=== PATIENT | female | born 1990 ===

== ENCOUNTER 2023-08-15 11:50 | Outpatient (CLI) | payer OTHER | END 2023-08-15 17:21 | disposition home or self-care (01) | LOC: PRENATAL 11:50 | PROVIDERS: ATTEND Obstetrics & Gynecology Maternal & Fetal Medicine | DX: O36.80X0 Pregnancy with inconclusive fetal viability, not applicable or unspecified (principal); Z36.82 Encounter for antenatal screening for nuchal translucency; Z36.9 Encounter for antenatal screening, unspecified; Z14.8 Genetic carrier of other disease; O99.210 Obesity complicating pregnancy, unspecified trimester; O34.219 Maternal care for unspecified type scar from previous cesarean delivery; O26.859 Spotting complicating pregnancy, unspecified trimester; Z3A.13 13 weeks gestation of pregnancy ==